=== PATIENT | male | born 2000 | race Caucasian/White ===

== ENCOUNTER 2024-10-31 16:34 | Emergency (ER) | payer OTHER ==
[~2024-10-31] VITALS: Ht 172.7 cm; Wt 102.1 kg
[2024-10-31 17:27] VITALS: TEMP 98.5
[2024-10-31 19:19] VITALS: BP 115/72; O2SAT 95
== END 2024-10-31 18:45 | disposition home or self-care (01) ==
LOC: ER 16:40
DX: F12.90 Cannabis use, unspecified, uncomplicated (principal); F10.90 Alcohol use, unspecified, uncomplicated; F41.1 Generalized anxiety disorder; R00.2 Palpitations; R05.9 Cough, unspecified; Y90.9 Presence of alcohol in blood, level not specified
CPT/HCPCS: 99283; J7030